=== PATIENT | male | born 1935 | race Caucasian/White ===

== ENCOUNTER 2019-09-24 12:36 | Inpatient (IN) | payer OTHER ==
[~2019-09-24] VITALS: Ht 185.4 cm; Wt 58.1 kg
[2019-09-24] MEDS ORDERED: ATORVASTATIN CA40 MG (12:57)
[2019-09-24] MEDS ORDERED: FOLIC ACID0.8 M1 (12:58)
[2019-09-24] MEDS ORDERED: BRILINTA60 MG (12:58)
[2019-09-24] MEDS ORDERED: ASPIR 8181 MG (12:59)
--- NOTE | 2019-09-24 12:59 | NUR ---
SE RECIBE MASCULINO ALERTA CONCIENTE Y ORINTADO EN AMBULANCIA ACOMPANDADO DE [place] QUE REFIERE PTE. CON DOLOR ABDOMINAL DESDE HACE FREDO OLIVER REFIERE DEBILIDAD Y ORINA OSCURA SE UBICA EN COREY 10 CON BARANDAS ELEVADAS.
--- NOTE | 2019-09-24 14:08 | NUR ---
PACIENTE ALERTA Y ORIENTADO EN DHAVAL FREDO ESFERAS, EN COMPANIA DE FAMILIARES, SON ORIENTADOS SOBRE ORDENES MEDICAS, REFIEREN ENTENDER. SE COLECTAN MUESTRAS DE [place], SE CANALIZA VENA Y SE ADMINISTRAN MEDICAMENTOS. SE HACE ENTREGA DE CONTRASTE GASTROVIEW CON INSTRUCCIONES PREVIAS. PENDIENTE QUE PACIENTE ENTREGUE MUESTRA DE ORINA, TIENE ENVASE, AVISA PARA ORINAR.
== END 2019-09-28 17:44 | disposition home or self-care (01) | DRG 392 ==
LOC: ER 12:36 → MEDI 20:08
PROVIDERS: ADMIT Internal Medicine
PROC: BW21ZZZ Computerized Tomography (CT Scan) of Abdomen and Pelvis (ICD-10-PCS; principal; 2019-09-24)
DX: K57.32 Diverticulitis of large intestine without perforation or abscess without bleeding (principal); E03.9 Hypothyroidism, unspecified